=== PATIENT | male | born 1995 | race Caucasian/White ===

== ENCOUNTER 2022-07-30 08:32 | Emergency (ER) | payer OTHER ==
[2022-07-30 08:46] VITALS: BP 157/95
--- NOTE | 2022-07-30 09:41 | ED Physician Documentation ---
PD HPI HEENT - Stated complaint Stated Complaint: L JAW PAIN - Chief complaint Chief Complaint: Heent - History obtained from History obtained from: Patient - Additional information Additional information: Patient comes to the emergency department chief complaint of left-sided pain around the jaw and ear after getting elbowed in the jaw this morning. He states the actual injury occurred on the right side but it pushed his jaw over. He does not feel up pop or a crack, but did have pain after the incident. Its been approximately an hour and a half since the incident occurred. Patient states his teeth feel "weird" like there malaligned, and it hurts to bite down hard. No trouble talking or opening his mouth. No facial swelling that he is noticed. No other injuries or complaints. Review of Systems Ten Systems: 10 systems reviewed and negative Constitutional: reports: Reviewed and negative Eyes: reports: Reviewed and negative Ears: reports: Reviewed and negative Nose: reports: Reviewed and negative Throat: reports: Reviewed and negative Cardiac: reports: Reviewed and negative Respiratory: reports: Reviewed and negative GI: reports: Reviewed and negative : reports: Reviewed and negative Skin: reports: Reviewed and negative Musculoskeletal: reports: Reviewed and negative Neurologic: reports: Reviewed and negative Psychiatric: reports: Reviewed and negative Endocrine: reports: Reviewed and negative Immunocompromised: reports: Reviewed and negative PD PAST MEDICAL HISTORY - Allergies Allergies/Adverse Reactions: Allergies Allergy/AdvReac Type Severity Reaction Status Date / Time Sulfa (Sulfonamide Allergy Rash Verified 07/30/22 08:46 Antibiotics) PD ED PE NORMAL - Vitals Vital signs reviewed: Yes - General General: Alert and oriented X 3, No acute distress, Well developed/nourished - HEENT HEENT: Atraumatic, PERRL, EOMI, Moist mucous membranes, Dentition benign (No dental avulsion or fracture. No gingival or alveolar step-off. Teeth occlude normally with good alignment between mandibular and maxillary teeth. No dental laxity.), Other (Normal-appearing face without edema or contusion. Full range of motion of mandible easily and talks without difficulty. No tenderness or deformity of mandible. ) - Neck Neck: Supple, no meningeal sign, No adenopathy, Other (Soft tissue tenderness just posterior to mandibular angle and extending over soft tissues overlying TMJ.) - Respiratory Respiratory: No respiratory distress - Derm Derm: Normal color, Warm and dry, No rash - Extremities Extremities: No deformity - Neuro Neuro: Alert and oriented X 3 - Psych Psych: Normal mood, Normal affect Results - Vitals Vitals: Vital Signs - 24 hr 07/30/22 08:42 Temperature 36.1 C L Heart Rate 68 Respiratory 16 Rate Blood Pressure 157/95 H O2 Saturation 100 Oxygen O2 Source Room air PD MEDICAL DECISION MAKING - ED course Complexity details: considered differential, d/w patient ED course: I discussed with the patient that actually, his mandibular range of motion is very good and that there is no swelling or contusion of the painful area. Additionally, the patient has no dental trauma or laxity to indicate significant injury to the mandible. I feel most likely the patient has strained/sprained his TMJ. He has mainly soft tissue tenderness, and we have discussed symptomatic management of this at home. We have also discussed the usual indications for return. Departure - Departure Disposition: 01 Home, Self Care Clinical Impression: TMJ (sprain of temporomandibular joint) Qualifiers: Encounter type: initial encounter Qualified Code(s): S03.40XA - Sprain of jaw, unspecified side, initial encounter Condition: Stable Instructions: ED TMJ Syndrome Comments: You have pain around your temporomandibular joint, which is the joint about which her jaw moves. Most likely, during the injury, you strained the tissues that help move and attach your jaw. You actually have very good range of motion of your jaw and your teeth are very well aligned. There is no step-off along her gums and there is no tenderness to indicate a break. You may develop some popping in the jaw which can sometimes happen after an injury. This is called TMJ syndrome. Most of the time, if you give your jaw a rest and avoid any very "chewy" foods, such as gum, taffy, or hard crunchy items, this will go away on its own. You may take ibuprofen and Tylenol if needed. You may follow-up with your primary care physician for any further concerns.
== END 2022-07-30 10:03 | disposition home or self-care (01) ==
LOC: ED 08:32
DX: S03.40XA Sprain of jaw, unspecified side, initial encounter (principal); X58.XXXA Exposure to other specified factors, initial encounter
CPT/HCPCS: 99281; 99282